=== PATIENT | female | born 1940 | race Caucasian/White ===

== ENCOUNTER 2021-06-26 13:39 | Outpatient (CLI) | payer MEDICARE, BC | END 2021-06-26 13:40 | disposition home or self-care (01) | LOC: MRI 13:39 | PROVIDERS: ATTEND Specialist | DX: S83.241A Other tear of medial meniscus, current injury, right knee, initial encounter (principal); S83.281A Other tear of lateral meniscus, current injury, right knee, initial encounter; M17.0 Bilateral primary osteoarthritis of knee ==